=== PATIENT | female | born 2000 | race Caucasian/White ===

== ENCOUNTER 2018-07-21 23:38 | Emergency (ER) | payer OTHER ==
[2018-07-21 23:56] VITALS: TEMP 98.3
[2018-07-22 00:32] LABS: Basophils % (A) 0 %; Eosinophils # (A) 0.2 k/uL (0-0.7); Eosinophils % (A) 2 %; HCT 43.4 % (34.0-46.0); HGB 14.1 gm/dL (11.4-16.0); Lymphocytes # (A) 4.2 k/uL (1.0-4.8); Lymphocytes % (A) 36 %; MCH 28.2 pg (25.0-35.0); MCHC 32.5 g/dL (31.0-37.0); MCV 86.9 fL (80.0-100.0); Mean Platelet Volume 6.1; Monocytes # (A) 0.6 k/uL (0-1.0); Monocytes % (A) 5 %; Neutrophils # (A) 6.3 k/uL (1.3-7.7); Neutrophils % (A) 55 %; Platelet Count 332 k/uL (150-450); RBC 4.99 m/uL (3.80-5.40); RDW 12.3 % (11.5-15.5); WBC 11.6 k/uL (4.0-11.0)
[2018-07-22 00:44] LABS: D-Dimer <0.17 mg/L FEU (<0.60); Partial Thromboplastin Time 25.5 sec (22.0-30.0)
[2018-07-22 00:47] LABS: ALT 28 U/L (9-52); AST 23 U/L (14-36); Albumin 4.4 g/dL (3.5-5.0); Alkaline Phosphatase 101 U/L (38-126); Anion Gap 9 mmol/L; Blood Urea Nitrogen 10 mg/dL (7-17); Calcium 9.7 mg/dL (8.4-10.2); Carbon Dioxide 24 mmol/L (22-30); Chloride 107 mmol/L (98-107); Glucose 92 mg/dL (74-99); Magnesium 1.9 mg/dL (1.6-2.3); Potassium 4.1 mmol/L (3.5-5.1); Sodium 140 mmol/L (137-145); Total Bilirubin 0.4 mg/dL (0.2-1.3)
[2018-07-22 00:56] LABS: Creatine Kinase 46 U/L (30-135)
--- NOTE | 2018-07-22 01:06 | ED ---
Chest Pain HPI - General Chief Complaint: Chest Pain Stated Complaint: Sternum/ Back Pain Time Seen by Provider: 07/21/18 23:58 Source: patient Mode of arrival: ambulatory Limitations: no limitations - History of Present Illness Initial Comments: This is a 18-year-old female with PMH of anxiety presenting today for chief complaint of crampy chest pain. Patient states that yesterday after turning from a [employer] she experienced 5 minutes of crampy mid chest pain, she denies a shorts of breath, dizziness, palpitations or dyspnea on exertion at this time. She states that she was resting. Pt stated it resolved returning today multiple times for about 20 minutes duration, with no specific pattern with activity or rest. He denies any fever, chills, night sweats, IV drug use, doubt pain, jaw pain, upper extremities paresthesias, dizziness, headache, confusion, lightheadedness, history of syncope, calf pain/calf tenderness, recent travel, history of cancer or blood clots, estrogen use, hemoptysis or chest pain with deep inspiration. Remainder was negative, patient denies stating last menstrual period was a week ago. Remainder of our was negative. Patient denies current symptoms stating stating she has been asymptomatic since 12:00. Upon arrival pt VS stable, pt appears well, no acute distress. (-) Levigns sign. - Related Data Home Medications Medication Instructions Recorded Confirmed Norethindrone-E.estradiol-Iron 1 each PO 07/21/18 [Junel Fe 1 mg-20 Mcg Tablet] Allergies Allergy/AdvReac Type Severity Reaction Status Date / Time No Known Allergies Allergy Verified 07/21/18 23:57 Review of Systems ROS Statement: Those systems with pertinent positive or pertinent negative responses have been documented in the HPI. ROS Other: All systems not noted in ROS Statement are negative. Constitutional: Denies: fever, chills, night sweats ENT: Denies: ear pain, throat pain Respiratory: Denies: cough, dyspnea, wheezes, hemoptysis, stridor, other Cardiovascular: Reports: as per HPI, chest pain. Denies: palpitations, dyspnea on exertion Endocrine: Denies: fatigue Gastrointestinal: Denies: abdominal pain, nausea, vomiting, diarrhea, constipation, hematemesis, melena, hematochezia Genitourinary: Denies: urgency, dysuria, frequency, hematuria, discharge Musculoskeletal: Denies: back pain, joint swelling Skin: Denies: rash, lesions Neurological: Denies: headache, weakness, numbness, paresthesias, confusion EKG Findings - EKG Comments: EKG Findings:: A 12-lead EKG was performed and shows the following: Rate is 68bpm, and rhythm is normal sinus. There are normal QRS complexes and normal R- wave progression. ST segments have no elevation or depression, and MO segments appear normal. Past Medical History Past Medical History: No Reported History History of Any Multi-Drug Resistant Organisms: None Reported Past Surgical History: No Surgical Hx Reported Past Psychological History: No Psychological Hx Reported Smoking Status: Never smoker Past Alcohol Use History: Rare Past Drug Use History: None Reported General Exam - General Exam Comments Initial Comments: General: The patient is awake and alert, in no distress, and does not appear acutely ill. No levign sign. Eye: +3 pupils are equal, round and reactive to light, extra-ocular movements are intact. No nystagmus. There is normal conjunctiva bilaterally. No signs of icterus. Ears, nose, mouth and throat: There are moist mucous membranes and no oral lesions. Neck: The neck is supple, there is no tenderness or JVD. Cardiovascular: There is a regular rate and rhythm. No murmur, rub or gallop is appreciated. Respiratory: Lungs are clear to auscultation, respirations are non-labored, breath sounds are equal. No wheezes, stridor, rales, or rhonchi. Gastrointestinal: Soft, non-distended, non-tender abdomen without masses or organomegaly noted. There is no rebound or guarding present. No CVA tenderness. Bowel sounds are unremarkable. Musculoskeletal: No tenderness to palpation over the anterior chest. Normal ROM , no tenderness. Strength 5/5. Sensation intact. Radial pulses equal bilaterally 2+. Neurological: A&O x 3. CN II-XII intact, There are no obvious motor or sensory deficits. Coordination appears grossly intact. Speech is normal. Skin: Skin is warm and dry and no rashes or lesions are noted. Psychiatric: Cooperative, appropriate mood & affect, normal judgment. Limitations: no limitations Course Vital Signs 07/21/18 07/22/18 23:51 01:51 Temperature 98.3 F Pulse Rate 81 91 Respiratory 20 18 Rate Blood Pressure 142/84 135/87 O2 Sat by Pulse 100 98 Oximetry Chest Pain MDM - MDM Patient's physical exam unremarkable, No signs of acute distress. Patient denies current symptoms. Chest x-ray negative. EKG no acute findings. Patient placed on telemetry. Laboratory findings unremarkable, negative d-dimer , negative troponins, negative cardiac profile. Patient vital signs stable. Patient overall appears well, no signs of acute distress. Patient does have a history of anxiety, she discussed that she thinks this could possibly be related. Remainder ROS negative. Patient is perc negative, no falls criteria. At this time feel patient is stable for discharge, case was discussed in detail with Dr. Finch who agrees the impression. Patient is agreeable discharge, however I did recommend close primary care follow-up. With possible full Holter monitoring. Patient was given strict return parameters, including return for worsening symptoms. Patient was instructed to take ibuprofen Tylenol for pain management. Patient verbalized understanding of plan and I'll return parameters. Patient is agreeable discharge stating that she is ready to go home. Patient was discharged in stable condition - Wells Criteria Clinical Symptoms of DVT: (0) No No Alternative Diagnosis: (0) No Immobilization of Surgery in Previous 4 Weeks: (0) No Previous DVT/PE: (0) No Hemoptysis: (0) No Malignancy: (0) No - PERC Rule Heart Rate < 100: (0) No g: (0) No No Prior History pf DVT/PE: (0) No No Recent Trauma or Surgery: (0) No Hemoptysis: (0) No No Exogenous Estrogen: (0) No No Clinical Signs Suggesting DVT: (0) No - YEE Score Age > 65: (0) No 3 or more CAD Risk Factors: (0) No Known CAD with more than 50% Stenosis: (0) No Aspirin use within the Past 7 Days: (0) No Elevated Cardiac Markers: (0) No ST Deviation Greater than 0.5mm: (0) No Disposition Clinical Impression: Chest discomfort Disposition: HOME SELF-CARE Condition: Good Instructions: Chest Pain (ED), Costochondritis (ED) Additional Instructions: Please use medication as discussed. Please follow-up with family doctor in the next 2 days, recommend possible holter monitor. Please return to emergency room if the symptoms increase or worsen or for any other concerns. Is patient prescribed a controlled substance at d/c from ED?: No Referrals: Fouzia Herr DO [Primary Care Provider] - 1-2 days Time of Disposition: 01:45
--- NOTE | 2018-07-22 01:08 | XR ---
EXAMINATION TYPE: XR chest 2V DATE OF EXAM: 07/22/2018 COMPARISON: 12/24/2006 HISTORY: Chest pain TECHNIQUE: Frontal and lateral views of the chest are obtained. FINDINGS: Heart and mediastinum are normal. Lungs are clear. Diaphragm is normal. Bony thorax appear s normal. IMPRESSION: Normal chest.
[2018-07-22 01:09] LABS: Creatine Kinase MB <0.2 ng/mL (0.0-2.4); Troponin I <0.012 ng/mL (0.000-0.034)
[2018-07-22 01:52] VITALS: BP 135/87; PULSE 91; RESP 18
== END 2018-07-22 01:52 | disposition home or self-care (01) ==
LOC: EC 23:38
DX: R07.89 Other chest pain (principal); Z79.3 Long term (current) use of hormonal contraceptives
CPT/HCPCS: 36415; 71046; 80053; 82550; 82553; 83735; 84484; 85025; 85379; 85610; 85730; 93005; 99285

== ENCOUNTER 2020-11-29 13:02 | Emergency (ER) | payer OTHER ==
[2020-11-29 15:05] VITALS: BP 146/77; PULSE 92; RESP 18; TEMP 98.6
[2020-11-29] MEDS ORDERED: ACETAMINOPHEN TAB 500 MG TAB PO STA (15:08)
[2020-11-29] MEDS ORDERED: SODIUM CHLORIDE 0.9% 1,000 ML IV ONE (15:08)
--- NOTE | 2020-11-29 15:09 | ED ---
Female Urogenital HPI - General Source: patient, RN notes reviewed Mode of arrival: ambulatory Limitations: no limitations - History of Present Illness Last Menstrual Period: 10/11/20 <Darci Herrera - Last Filed: 11/29/20 15:07> <Leonel Evans - Last Filed: 11/29/20 20:19> - General Chief complaint: Vaginal Bleeding Stated complaint: Vaginal bleeding 6Wks preg Time Seen by Provider: 11/29/20 15:07 - History of Present Illness Initial comments: Patient is a 20-year-old female that recently found out she was , she is about 6 weeks at this point. She notes that over the last couple days she has been having some spotting and vaginal bleeding with lower abdominal cramping and low back pain. She can emergency room to get evaluated. (Darci Herrera) - Related Data Home Medications Medication Instructions Recorded Confirmed Norethindrone-E.estradiol-Iron 1 each PO 07/21/18 [Junel Fe 1 mg-20 Mcg Tablet] Allergies Allergy/AdvReac Type Severity Reaction Status Date / Time No Known Allergies Allergy Verified 11/29/20 15:05 Review of Systems ROS Other: All systems not noted in ROS Statement are negative. <Darci Herrera - Last Filed: 11/29/20 15:07> ROS Other: All systems not noted in ROS Statement are negative. <Leonel Evans - Last Filed: 11/29/20 20:19> ROS Statement: Those systems with pertinent positive or pertinent negative responses have been documented in the HPI. Past Medical History Past Medical History: No Reported History History of Any Multi-Drug Resistant Organisms: None Reported Past Surgical History: No Surgical Hx Reported Past Psychological History: No Psychological Hx Reported Smoking Status: Never smoker Past Alcohol Use History: Rare Past Drug Use History: None Reported <Darci Herrera - Last Filed: 11/29/20 15:07> General Exam Limitations: no limitations General appearance: alert, in no apparent distress Head exam: Present: atraumatic, normocephalic, normal inspection Eye exam: Present: normal appearance, PERRL, EOMI. Absent: scleral icterus, conjunctival injection, periorbital swelling Neck exam: Present: normal inspection. Absent: tenderness, meningismus, lymphadenopathy Respiratory exam: Present: normal lung sounds bilaterally. Absent: respiratory distress, wheezes, rales, rhonchi, stridor Cardiovascular Exam: Present: regular rate, normal rhythm, normal heart sounds. Absent: systolic murmur, diastolic murmur, rubs, gallop, clicks GI/Abdominal exam: Present: soft, tenderness (Bilaterally in the lower abdomen, most point tenderness in suprapubic region), normal bowel sounds. Absent: distended, guarding, rebound, rigid Extremities exam: Present: normal inspection, full ROM, normal capillary refill. Absent: tenderness, pedal edema, joint swelling, calf tenderness Back exam: Present: normal inspection Neurological exam: Present: alert, oriented X3, CN II-XII intact Psychiatric exam: Present: normal affect, normal mood Skin exam: Present: warm, dry, intact, normal color. Absent: rash <Darci Herrera - Last Filed: 11/29/20 15:07> Course Vital Signs 11/29/20 15:03 Temperature 98.6 F Pulse Rate 92 Respiratory 18 Rate Blood Pressure 146/77 Medical Decision Making - Lab Data Result diagrams: 11/29/20 17:15 11/29/20 17:15 <Leonel Evans - Last Filed: 11/29/20 20:19> - Medical Decision Making Dictation was produced using [employer] dictation software. please excuse any grammatical, word or spelling errors. This patient was cared for during a federal and state declared state of emergency secondary to Covid 19 Chief Complaint: 20-year-old female presents emergency department for vaginal b leeding and History of Present Illness: Patient is a 20-year-old female she has vaginal b leeding and . She got unexpectedly. She thinks she is around 6 weeks . Yesterday she went to wipe and noticed that there was some blood on the tissue. Patient has any active bleeding at this time. She doesn't have any pain at the moment. Patient does not know her blood type is. Danielfarida is at bedside and they're planning to terminate the at [facility] later this week. The ROS documented in this emergency department record has been reviewed and c onfirmed by me. Those systems with pertinent positive or negative responses have been documented in the HPI. All other systems are other negative and/or noncontributory. PHYSICAL EXAM: General Impression: Alert and oriented x3, not in acute distress HEENT: Normocephalic atraumatic, extra-ocular movements intact, pupils equal and reactive to light bilaterally, mucous membranes moist. Cardiovascular: Heart regular rate and rhythm Chest: Able to complete full sentences, no retractions, no tachypnea Abdomen: abdomen soft, non-tender, non-distended, no organomegaly Musculoskeletal: Pulses present and equal in all extremities, no peripheral edema Motor: no focal deficits noted Neurological: CN II-XII grossly intact, no focal motor or sensory deficits noted Skin: Intact with no visualized rashes Psych: Normal affect and mood Pelvic exam: Patient refused ED course: 20yo female presents with vaginal bleeding and . As upon arrival are within acceptable limits. Patient refusing pelvic exam. Fianc and patient are planning on aborting the later this week at [facility] in [place]. Laboratory evaluation obtained. CBC is unremarkable. Metabolic panel shows bodies within acceptable limits. Beta Quant is 123,779. blood Type is O+ ultrasound shows gestational age of 7 weeks and 4 days.. There is a small. Gestational fluid collection concerning for subchorionic bleed. Patient will be discharged. She is not a candidate for RhoGAM.. Patient discharged told to follow up with [facility]. Temperature was discussed. (Leonel Evans) - Lab Data Lab Results 11/29/20 11/29/20 11/29/20 Range/Units 17:15 17:15 17:15 WBC 14.4 H (3.8-10.6) k/uL RBC 5.04 (3.80-5.40) m/uL Hgb 14.9 (11.4-16.0) gm/dL Hct 43.2 (34.0-46.0) % MCV 85.7 (80.0-100.0) fL MCH 29.6 (25.0-35.0) pg MCHC 34.6 (31.0-37.0) g/dL RDW 12.1 (11.5-15.5) % Plt Count 331 (150-450) k/uL MPV 6.3 Neutrophils % 82 % Lymphocytes % 13 % Monocytes % 3 % Eosinophils % 1 % Basophils % 0 % Neutrophils # 11.8 H (1.3-7.7) k/uL Lymphocytes # 1.9 (1.0-4.8) k/uL Monocytes # 0.5 (0-1.0) k/uL Eosinophils # 0.1 (0-0.7) k/uL Basophils # 0.0 (0-0.2) k/uL Sodium 138 (137-145) mmol/L Potassium 3.7 (3.5-5.1) mmol/L Chloride 103 (98-107) mmol/L Carbon Dioxide 21 L (22-30) mmol/L Anion Gap 14 mmol/L BUN 5 L (7-17) mg/dL Creatinine 0.48 L (0.52-1.04) mg/dL Est GFR (CKD-EPI)AfAm >90 (>60 ml/min/1.73 sqM) Est GFR (CKD-EPI)NonAf >90 (>60 ml/min/1.73 sqM) Glucose 91 (74-99) mg/dL Calcium 10.0 (8.4-10.2) mg/dL Total Bilirubin 0.5 (0.2-1.3) mg/dL AST 21 (14-36) U/L ALT 12 (4-34) U/L Alkaline Phosphatase 109 (38-126) U/L Total Protein 8.4 H (6.3-8.2) g/dL Albumin 5.0 (3.5-5.0) g/dL HCG, Quant 705132.0 mIU/mL Blood Type O Positive Blood Type Confirm Blood Type Recheck No Previous Record Bld Type Recheck Status CABO Indicated Antibody Screen NEGATIVE Spec Expiration Date 12/02/2020 - 231411/29/20 Range/Units 17:30 WBC (3.8-10.6) k/uL RBC (3.80-5.40) m/uL Hgb (11.4-16.0) gm/dL Hct (34.0-46.0) % MCV (80.0-100.0) fL MCH (25.0-35.0) pg MCHC (31.0-37.0) g/dL RDW (11.5-15.5) % Plt Count (150-450) k/uL MPV Neutrophils % % Lymphocytes % % Monocytes % % Eosinophils % % Basophils % % Neutrophils # (1.3-7.7) k/uL Lymphocytes # (1.0-4.8) k/uL Monocytes # (0-1.0) k/uL Eosinophils # (0-0.7) k/uL Basophils # (0-0.2) k/uL Sodium (137-145) mmol/L Potassium (3.5-5.1) mmol/L Chloride (98-107) mmol/L Carbon Dioxide (22-30) mmol/L Anion Gap mmol/L BUN (7-17) mg/dL Creatinine (0.52-1.04) mg/dL Est GFR (CKD-EPI)AfAm (>60 ml/min/1.73 sqM) Est GFR (CKD-EPI)NonAf (>60 ml/min/1.73 sqM) Glucose (74-99) mg/dL Calcium (8.4-10.2) mg/dL Total Bilirubin (0.2-1.3) mg/dL AST (14-36) U/L ALT (4-34) U/L Alkaline Phosphatase (38-126) U/L Total Protein (6.3-8.2) g/dL Albumin (3.5-5.0) g/dL HCG, Quant mIU/mL Blood Type Blood Type Confirm O Positive Blood Type Recheck Bld Type Recheck Status Antibody Screen Spec Expiration Date Disposition <Darci Herrera - Last Filed: 11/29/20 15:07> Is patient prescribed a controlled substance at d/c from ED?: No Time of Disposition: 20:19 <Leonel Evans - Last Filed: 11/29/20 20:19> Clinical Impression: Threatened miscarriage Disposition: HOME SELF-CARE Condition: Fair Instructions (If sedation given, give patient instructions): Threatened Miscarriage (ED) Referrals: Mis Lopez NPC [REFERRING] - 1-2 days
[2020-11-29 17:35] LABS: Basophils % (A) 0 %; Eosinophils # (A) 0.1 k/uL (0-0.7); Eosinophils % (A) 1 %; HCT 43.2 % (34.0-46.0); HGB 14.9 gm/dL (11.4-16.0); Lymphocytes # (A) 1.9 k/uL (1.0-4.8); Lymphocytes % (A) 13 %; MCH 29.6 pg (25.0-35.0); MCHC 34.6 g/dL (31.0-37.0); MCV 85.7 fL (80.0-100.0); Mean Platelet Volume 6.3; Monocytes # (A) 0.5 k/uL (0-1.0); Monocytes % (A) 3 %; Neutrophils # (A) 11.8 k/uL (1.3-7.7); Neutrophils % (A) 82 %; Platelet Count 331 k/uL (150-450); RBC 5.04 m/uL (3.80-5.40); RDW 12.1 % (11.5-15.5); WBC 14.4 k/uL (3.8-10.6)
--- NOTE | 2020-11-29 17:43 | US ---
EXAMINATION TYPE: Transabdominal DATE OF EXAM: 11/29/2020 4:46 PM COMPARISON: NONE CLINICAL HISTORY: pain. vaginal bleeding and pelvic pain for 1 day EXAM PERFORMED: Transvaginal (TV) and Transabdominal (TA) EXAM MEASUREMENTS: GESTATIONAL AGE / DATING Physician Established: Not yet established Dates by LMP: (7 weeks/0 days) EDC: 07/18/21 Dates by First Scan: No previous this is first scan Dates by Current Scan for: (7 weeks/4 days) EDC: 07/14/21 MATERNAL ANATOMY Uterus: 8.7 x 6.3 x 6.4cm Right Ovary: 3.1 x 1.6 x 2.1cm Left Ovary: 2.9 x 2.0 x 2.2cm Post CDS / Adnexa: appears wnl Presence of free fluid: no Presence of corpus luteal cyst: yes, hypoechoic area left ovary = 1.7 x 2.0 x 1.5cm Presence of subchorionic bleed: yes, small hypoechoic area adjacent to gestational sac = 1.4cm GESTATION / SURVEY CRL: 1.3cm (7 weeks/4 days) Yolk Sac (normal less than 6mm): 0.3cm Heart Rate: 144 bpm Rhythm: Normal IUP: Viable IUP Date of LMP: 10/11/20 Beta HcG (if available): Not available at this time IMPRESSION: The ultrasound gestational age is 7 weeks and 4 days. The CAMERON is 07/14/2021. No adnexal mass. There i s very small latoya Gestational fluid collection measuring 3 mm in thickness.
[2020-11-29 17:50] LABS: ALT 12 U/L (4-34); AST 21 U/L (14-36); African American GFR (CKD) >90 (>60 ml/min/1.73 sqM); Alkaline Phosphatase 109 U/L (38-126); Anion Gap 14 mmol/L; Blood Urea Nitrogen 5 mg/dL (7-17); Carbon Dioxide 21 mmol/L (22-30); Chloride 103 mmol/L (98-107); Glucose 91 mg/dL (74-99); Non-African American GFR(CKD) >90 (>60 ml/min/1.73 sqM); Potassium 3.7 mmol/L (3.5-5.1); Sodium 138 mmol/L (137-145); Total Bilirubin 0.5 mg/dL (0.2-1.3); Total Protein 8.4 g/dL (6.3-8.2)
== END 2020-11-29 20:38 | disposition home or self-care (01) ==
LOC: EC 13:02
DX: O20.0 Threatened abortion (principal); Z3A.01 Less than 8 weeks gestation of pregnancy
CPT/HCPCS: 36415; 76801; 76817; 80053; 84702; 85025; 86850; 86900; 86901; 96360; 99284